=== PATIENT | male | born 1985 | race Caucasian/White ===

== ENCOUNTER 2016-12-08 13:36 | Emergency (ER) | payer MEDICAID ==
[2016-12-08 13:43] VITALS: RESP 18; TEMP 98.1
--- NOTE | 2016-12-08 14:26 | EDPHY ---
H & P Smoking Status: Current some day smoker Time Seen by Provider: 12/08/16 14:06 HPI/ROS: CHIEF COMPLAINT: Bipolar, manic HISTORY OF PRESENT ILLNESS: 31-year-old male presents to the emergency department feeling extremely manic. The patient has a history of bipolar with severe psychosis. He was recently arrested 2 weeks ago and then was without his psychiatric medication. He has not taken his lithium nearly 1 month. He is also prescribed Abilify and his last dose was 4 days ago. The patient states that he has not slept at least 2 weeks. He denies any substance abuse or alcohol. Stop smoking marijuana approximately 3 weeks ago. States that he feels anxious. He has no chest pain however difficulty breathing. No reported fever. He denies neck or back pain. No reported trauma. REVIEW OF SYSTEMS: Constitutional: No fever, no chills. Eyes: No double or blurry vision. ENT: No sore throat. Respiratory: No cough, no shortness of breath. Cardiac: No chest pain. Gastrointestinal: No abdominal pain, vomiting or diarrhea. Genitourinary: No dysuria. Musculoskeletal: No neck or back pain. Skin: No rashes. Neurological: No headache. (Felicita Liu) Past Medical/Surgical History: Bipolar with psychosis, stop smoking marijuana 3 weeks ago. (Felicita Liu) Social History: Single and lives alone in [place] (XiomaraFelicita lopez) Physical Exam: General Appearance: Alert, no distress. Very anxious. Pressured speech. Eyes: Pupils equal and round. Extraocular motions are all intact. ENT: Mouth: Mucous membranes moist. Respiratory: No wheezing, rhonchi, or rales, lungs are clear to auscultation. Cardiovascular: Regular rate and rhythm. Gastrointestinal: Abdomen is soft and nontender, no masses, no rebound or guarding, bowel sounds normal. Neurological: Alert and oriented x 3, cranial nerves II through XII grossly intact Skin: Warm and dry, no rashes. Musculoskeletal: Nontender to palpate along the cervical, thoracic or lumbar spine. Neck is supple. Extremities: Full range of motion and no peripheral edema. Psychiatric: Patient is oriented X 3, there is no agitation. (XiomaraFelicita lopez) Constitutional: Initial Vital Signs Temperature (C) 36.7 C 12/08/16 13:38 Heart Rate 64 12/08/16 13:38 Respiratory Rate 18 12/08/16 13:38 Blood Pressure 129/99 H 12/08/16 13:38 O2 Sat (%) 96 12/08/16 13:38 O2 Delivery Mode Room Air Allergies/Adverse Reactions: No Known Allergies Allergy (Verified 12/08/16 13:38) Home Medications: Medication Instructions Recorded Ensign Carbonate ER [Eskalith Cr 900 mg PO HS #60 tab 09/21/14 450 mg (*)] Abilify 12/08/16 Medical Decision Making ED Course/Re-evaluation: 31-year-old male presents to the emergency department a history of bipolar and psychosis. The patient is here voluntarily. He denies suicidal homicidal ideation. Denies visual hallucinations. He sometimes will have auditory hallucinations. Laboratory studies are pending. When the patient is medically cleared, he will be evaluated by mental health. The patient would like to be admitted to [address] [place] [address]. (Felicita Liu) 11:00 p.m.- I received sign-out on this patient at approximately 10:[address] Spicer. The patient was stable during my shift and was accepted at [facility] crisis stabilization unit. He is going there voluntarily, thus we will transport him in a taxi which is EN route. (Estrella Kendall) Differential Diagnosis: Including but not limited to manic episode, electrolyte abnormality, functional and major depression, situational depression, medication side effect, drugs and alcohol abuse. (Felicita Liu) - Data Points Laboratory Results: Laboratory Results 12/08/16 14:15 12/08/16 14:15 12/08/16 12/08/16 12/08/16 14:15 14:15 14:15 WBC 7.69 10^3/uL 10^3/uL (3.80-9.50) RBC 4.67 10^6/uL 10^6/uL (4.40-6.38) Hgb 14.6 g/dL g/dL (13.7-17.5) Hct 42.7 % % (40.0-51.0) MCV 91.4 fL fL (81.5-99.8) MCH 31.3 pg pg (27.9-34.1) MCHC 34.2 g/dL g/dL (32.4-36.7) RDW 12.6 % % (11.5-15.2) Plt Count 222 10^3/uL 10^3/uL (150-400) MPV 9.6 fL fL (8.7-11.7) Neut % (Auto) 61.2 % % (39.3-74.2) Lymph % (Auto) 28.7 % % (15.0-45.0) [place] % (Auto) 8.3 % % (4.5-13.0) Eos % (Auto) 1.0 % % (0.6-7.6) Baso % (Auto) 0.4 % % (0.3-1.7) Nucleat RBC Rel Count 0.0 % % (0.0-0.2) Absolute Neuts (auto) 4.70 10^3/uL 10^3/uL (1.70-6.50) Absolute Lymphs (auto) 2.21 10^3/uL 10^3/uL (1.00-3.00) Absolute Monos (auto) 0.64 10^3/uL 10^3/uL (0.30-0.80) Absolute Eos (auto) 0.08 10^3/uL 10^3/uL (0.03-0.40) Absolute Basos (auto) 0.03 10^3/uL 10^3/uL (0.02-0.10) Absolute Nucleated RBC 0.00 10^3/uL 10^3/uL (0-0.01) Immature Gran % 0.4 % % (0.0-1.1) Immature Gran # 0.03 10^3/uL 10^3/uL (0.00-0.10) Sodium 142 mEq/L mEq/L (134-144) Potassium 4.0 mEq/L mEq/L (3.5-5.2) Chloride 109 mEq/L mEq/L (97-110) Carbon Dioxide 22 mEq/l mEq/l (22-31) Anion Gap 11 mEq/L mEq/L (8-16) BUN 12 mg/dL mg/dL (7-23) Creatinine 0.8 mg/dL mg/dL (0.7-1.3) Estimated GFR > 60 Glucose 102 mg/dL H mg/dL (70-100) Calcium 9.6 mg/dL mg/dL (8.5-10.4) TSH 1.830 uIU/mL uIU/mL (0.465-4.680) Urine Opiates Screen NEGATIVE (NEGATIVE) Urine Barbiturates NEGATIVE (NEGATIVE) Ur Phencyclidine Scrn NEGATIVE (NEGATIVE) Ur Amphetamine Screen NEGATIVE (NEGATIVE) U Benzodiazepines Scrn NEGATIVE (NEGATIVE) Urine Cocaine Screen NEGATIVE (NEGATIVE) U Marijuana (THC) Screen NON-NEGATIVE H (NEGATIVE) Ethyl Alcohol < 10 mg/dL mg/dL (0-10) Medications Given: Discontinued Medications Aripiprazole (Abilify) 20 mg PO EDNOW ONE Stop: 12/08/16 20:31 Last Admin: 12/08/16 21:17 Dose: 20 mg Departure - Departure Disposition: Other Psych, Not [place] Clinical Impression: Bipolar 1 disorder Condition: Good Instructions: Bipolar Disorder (ED), Medical Clearance for Psychiatric Care (ED ) Additional Instructions: You have been accepted to [facility]. Please return to the emergency room if your worse in any way. Referrals: JOSÉ,STEPHANIE [Other] - As per Instructions [facility] [Clinic] - As per Instructions
[2016-12-08 14:38] LABS: % IMMATURE GRANULYOCYTES 0.4 % (0.0-1.1); ABSOLUTE IMMATURE GRANULOCYTES 0.03 10^3/uL (0.00-0.10); ADD DIFF? NO; ADD MORPH? NO; ADD SCAN? NO; ATYPICAL LYMPHOCYTE FLAG 30 (0-99); FRAGMENT RBC FLAG 10 (0-99); HEMATOCRIT 42.7 % (40.0-51.0); HEMOGLOBIN 14.6 g/dL (13.7-17.5); LEFT SHIFT FLG 0 (0-99); LIPEMIA HEMOLYSIS FLAG 90 (0-99); MEAN CELL HEMOGLOBIN 31.3 pg (27.9-34.1); MEAN CELL HEMOGLOBIN CONCENTR. 34.2 g/dL (32.4-36.7); MEAN CELL VOLUME 91.4 fL (81.5-99.8); MEAN PLATELET VOLUME 9.6 fL (8.7-11.7); PLATELET CLUMPS FLAG 0 (0-99); PLATELET COUNT 222 10^3/uL (150-400); RED BLOOD CELL COUNT 4.67 10^6/uL (4.40-6.38); RED CELL DISTRIBUTION WIDTH 12.6 % (11.5-15.2)
[2016-12-08 15:00] LABS: ANION GAP 11 mEq/L (8-16); CALCIUM 9.6 mg/dL (8.5-10.4); CARBON DIOXIDE 22 mEq/l (22-31); CHLORIDE 109 mEq/L (97-110); CREATININE 0.8 mg/dL (0.7-1.3); ETHANOL SERUM < 10 mg/dL (0-10); GLOMERULAR FILTRATION RATE > 60; GLUCOSE 102 mg/dL (70-100); SODIUM 142 mEq/L (134-144)
[2016-12-08] MEDS ORDERED: ARIPiprazole 10 MG TAB PO ONE (20:30)
[2016-12-08 23:17] VITALS: BP 122/71; PULSE 64; O2SAT 98
== END 2016-12-08 23:16 ==
DX: F31.9 Bipolar disorder, unspecified (principal); F17.200 Nicotine dependence, unspecified, uncomplicated
CPT/HCPCS: 80305; G0480

== ENCOUNTER 2016-12-23 10:05 | Emergency (ER) | payer MEDICAID ==
--- NOTE | 2016-12-23 10:48 | EDPHY ---
H & P Stated Complaint: psych placement/wants to go back to [facility]/saw psychiatrist yesterday Source: Patient, Old records Exam Limitations: No limitations - Personal History Current Tetanus/Diphtheria Vaccine: Yes Tetanus Vaccine Date: 2009 - Medical/Surgical History Hx Asthma: No Hx Chronic Respiratory Disease: No Hx Diabetes: No Hx Cardiac Disease: No Hx Renal Disease: No Hx Cirrhosis: No Hx Alcoholism: No Hx HIV/AIDS: No Hx Splenectomy or Spleen Trauma: No Other PMH: depression, R/O Bipolar with psychosis, Hx. finger fx. - Social History Smoking Status: Current some day smoker HPI/ROS: CHIEF COMPLAINT: Insomnia, hallucinations HISTORY OF PRESENT ILLNESS: Patient complains of not being able to sleep for the past 2 nights as well as hallucinations during the same time frame. He says this came on abruptly. He slipped a total of 4 hours over the past 2 nights. He is seen multiple colors and shapes. He seen various sounds. He does not think that they are truly there and feels that if he returns to his medication that he will no longer see or hear these things. He has not felt suicidal or homicidal. He is not felt any anger. He was recently seen here for similar complaints. He was transferred to [facility] for inpatient care. Diagnosed with bipolar disorder. He is placed on Seroquel and hydroxyzine. He was also placed on lithium but he has not been on it for the past few days. He says he does not know why he has not been on the lithium. There are no other modifying factors for this. No other associated complaints. DETAINER: Completed by me at 10:55 a.m., December 23, 2016 REVIEW OF SYSTEMS: Ten systems reviewed and are negative unless otherwise noted in the HPI PAST MEDICAL HISTORY: Bipolar disorder SOCIAL HISTORY: Nonsmoker. lives here in [place] FAMILY HISTORY: Noncontributory EXAMINATION General Appearance: Alert, no distress, pacing in anxious Head: normocephalic, atraumatic Eyes: Pupils equal and round, no conjunctival pallor or injection ENT, Mouth: Mucous membranes moist. Uvula midline. Airway widely patent Neck: Normal inspection, supple, non-tender Respiratory: Lungs are clear to auscultation. No wheezing, rhonchi or crackles Cardiovascular: Regular rate and rhythm. No murmur. Gastrointestinal: Abdomen is soft and nontender Back: non-tender, no bony abnormalities Neurological: A&O, nonfocal, normal gait Skin: Warm and dry, no rash Extremities: Nontender, no pedal edema Psychiatric: Pressured speech and flight of ideas. Pacing throughout the room. Cooperative. Denies suicidal ideation. Denies homicidal ideation. DIFFERENTIAL DIAGNOSES: Including but not limited to bipolar disorder, barbara, sub manic, acute psychosis , schizophrenia MDM: 10:50 a.m. Bipolar disorder with evidence of manic episode and psychosis with visual and auditory hallucinations. He is not suicidal. Not homicidal. He is alert to person, place and time. Patient was recently admitted to [facility] for inpatient care less than 2 weeks ago. He is requesting to go back there. I have put him on a detained or but not an M1 hold. Proceed with medical clearance and mental health evaluation. 12:30 p.m. Patient has been medically clear. [facility] has been notified for evaluation. 2:[address] Lorenzo that patient will be placed on an M1 hold due to psychosis and disability. Awaiting recommendation for placement. 3:50 p.m. Notified by mental health professional from [facility] that the patient has been evaluated and recommended for inpatient care. He is currently awaiting placement at this time. She also is requesting that we medicated him as he is pacing in remains very anxious. I have ordered Zyprexa p.o.. 4:05 p.m. At this time I have discussed the case with Dr. Spicer. He will assume care of the patient at this time. Please see his note for final disposition. SUPERVISION: Patient was evaluated in conjunction with the supervising physician. Please see their note for details. (Tan Smith) Constitutional: Initial Vital Signs Temperature (C) 36.8 C 12/23/16 10:09 Heart Rate 106 H 12/23/16 10:09 Respiratory Rate 20 12/23/16 10:09 Blood Pressure 109/75 12/23/16 10:09 O2 Sat (%) 96 12/23/16 10:09 O2 Delivery Mode Room Air Allergies/Adverse Reactions: No Known Allergies Allergy (Verified 12/23/16 10:08) Home Medications: Medication Instructions Recorded [place] Carbonate ER [Eskalith Cr 900 mg PO HS #60 tab 09/21/14 450 mg (*)] Abilify 12/08/16 Medical Decision Making Other Provider: PHYSICIAN DOCUMENTATION: The patient was evaluated and managed by the Physician Licensed Pharmacist and myself. I have reviewed the chart and agree with the findings and plan of care as documented. In addition, I examined the patient myself at 1445. History confirmed as history of bipolar disorder with recent psychiatric hospitalization. Denies medical complaints. Physical findings as follows: Ambulatory, wandering train of thought. Seen by mental health threading machine tender who placed patient on a 72 hour hold for psychosis, and admit for psychiatric treatment. Signed out to Dr. Spicer at change of shift with plan for inpatient placement. I am the secondary supervising physician. (Shade Lorenzo) - Data Points Laboratory Results: Laboratory Results 12/23/16 11:20 12/23/16 11:20 Medications Given: Discontinued Medications Olanzapine (Olanzapine) 10 mg PO ONCE ONE Stop: 12/23/16 15:58 Last Admin: 12/23/16 18:34 Dose: Not Given Olanzapine (Zyprexa Zydis) 10 mg PO EDNOW ONE Stop: 12/23/16 18:28 Last Admin: 12/23/16 18:28 Dose: 10 mg Departure - Departure Disposition: Other Psych, Not [place] Clinical Impression: Bipolar affective disorder, currently manic, severe, with psychotic features Condition: Good Referrals: [facility] [place] [Other] - As per Instructions
[2016-12-23 11:31] LABS: % IMMATURE GRANULYOCYTES 0.2 % (0.0-1.1); ABSOLUTE IMMATURE GRANULOCYTES 0.02 10^3/uL (0.00-0.10); ADD DIFF? NO; ADD MORPH? NO; ADD SCAN? NO; ATYPICAL LYMPHOCYTE FLAG 0 (0-99); FRAGMENT RBC FLAG 0 (0-99); HEMATOCRIT 46.4 % (40.0-51.0); HEMOGLOBIN 15.6 g/dL (13.7-17.5); LEFT SHIFT FLG 0 (0-99); LIPEMIA HEMOLYSIS FLAG 80 (0-99); MEAN CELL HEMOGLOBIN 31.3 pg (27.9-34.1); MEAN CELL HEMOGLOBIN CONCENTR. 33.6 g/dL (32.4-36.7); MEAN CELL VOLUME 93.2 fL (81.5-99.8); MEAN PLATELET VOLUME 8.9 fL (8.7-11.7); PLATELET CLUMPS FLAG 0 (0-99); PLATELET COUNT 247 10^3/uL (150-400); RED BLOOD CELL COUNT 4.98 10^6/uL (4.40-6.38); RED CELL DISTRIBUTION WIDTH 13.1 % (11.5-15.2)
[2016-12-23 11:50] LABS: ANION GAP 14 mEq/L (8-16); CALCIUM 9.7 mg/dL (8.5-10.4); CARBON DIOXIDE 24 mEq/l (22-31); CHLORIDE 107 mEq/L (97-110); CREATININE 0.8 mg/dL (0.7-1.3); ETHANOL SERUM < 10 mg/dL (0-10); GLOMERULAR FILTRATION RATE > 60; GLUCOSE 84 mg/dL (70-100); SALICYLATE < 1.0 mg/dL (2.0-20.0); SODIUM 145 mEq/L (134-144)
[2016-12-23 11:51] LABS: LITHIUM < 0.2 mEq/L (0.6-1.2)
[2016-12-23] MEDS ORDERED: OLANZapine 10 MG TAB PO ONE (15:57)
[2016-12-23 16:31] VITALS: BP 115/74; TEMP 98.4
[2016-12-23] MEDS ORDERED: OLANZapine DISINTEGR 10 MG TAB ONE (18:24)
[2016-12-23] MEDS ORDERED: OLANZapine DISINTEGR 10 MG TAB PO ONE (18:27)
[2016-12-23 19:02] VITALS: PULSE 89; RESP 20; O2SAT 95
== END 2016-12-23 20:34 ==
DX: F31.5 Bipolar disorder, current episode depressed, severe, with psychotic features (principal); F17.200 Nicotine dependence, unspecified, uncomplicated
CPT/HCPCS: 80305; G0480